=== PATIENT | male | born 1945 | race Hispanic/Latino ===

== ENCOUNTER 2021-03-06 04:39 | Inpatient (IN) | payer MEDICARE, OTHER ==
[~2021-03-06] VITALS: Ht 177.8 cm; Wt 111.6 kg
[~2021-03-06 04:39] MED LIST: CARAFATE1 GM PO; CENTRUM TABLET1 EACH PO; CILOSTAZOL50 M1; CIPRO500 MG PO; CLARITIN10 MG PO; DIGOXIN125 MCG PO; FEROSUL325 MG PO; FLAGYL500 MG PO; GLIMEPIRIDE1 MG PO; GLYBURIDE5 MG PO; HUMALOG100 UNITS/; HUMALOG100 UNITS/ SC; IRON325 M1 PO; LASIX40 MG PO; LOMOTIL TABLET1 EACH PO; LUPRON INJ; ONGLYZA5 MG PO; PANTOPRAZOLE SO40 MG PO; RANITIDINE HCL300 MG PO; REGLAN10 MG PO; SEPTRA DS TABL1 EACH PO; TAMSULOSIN HCL0.4 MG PO; TRIAMTERENE-HC1 EAC2 PO; WARFARIN SODIUM2 MG PO; WARFARIN SODIUM4 MG PO; Z NOVOLIN N SC; Z.0.ALLOPURINOL300 M PO; Z.0.CITRACAL + D C1 PO; Z.0.DIGOXIN125 MCG PO; Z.0.FLOMAX0.4 MG PO; Z.0.GLUCOPHAGE850 MG; Z.0.GLYBURIDE5 MG PO; Z.0.HYDROCHLOROTHIA2 PO; Z.0.LEVOTHYROXINE50 PO; Z.0.METOPROLOL SUCC5 PO; Z.0.ONGLYZA5 MG PO; Z.0.VASOTEC20 MG PO; Z.0.WARFARIN SODIUM4 PO
[2021-03-06 05:45] LABS: BASOPHILS # (AUTO) 0.1 (0.0-0.1); BASOPHILS % 0.5 % (0.0-1.0); EOSINOPHILS % 0.1 % (0.0-6.0); HEMATOCRIT 39.8 % (38.2-49.6); HEMOGLOBIN 12.6 g/dL (14.0-18.0); LYMPHOCYTES # (AUTO) 1.9 (1.0-3.2); MEAN CORPUSCULAR HEMOGLOBIN 28.4 pg (28-32); MEAN CORPUSCULAR HGB CONC 31.7 g/dL (31-35); MEAN CORPUSCULAR VOLUME 89.8 fL (81-99); MONOCYTES # (AUTO) 0.8 (0.2-0.8); MONOCYTES % 7.7 % (4.4-11.3); NEUTROPHILS # (AUTO) 7.2 (2.1-6.9); NEUTROPHILS % 72.1 % (38.7-80.0); PLATELET COUNT 117 x10e3/uL (140-360); RED BLOOD COUNT 4.43 x10e6/uL (4.3-5.7); RED CELL DISTRIBUTION WIDTH 15.5 % (11.7-14.4)
[2021-03-06] MEDS ORDERED: ACETAMINOPHEN 325 MG TAB PO ONE ×2 (05:45→11:45)
[2021-03-06 05:50] LABS: INR 1.05; PROTHROMBIN TIME 13.9 seconds (11.9-14.5)
[2021-03-06 05:51] LABS: CLARITY,URINE CLOUDY (CLEAR); COLOR,URINE BROWN (YELLOW); KETONES,URINE 1+ (NEGATIVE); LEUKOCYTE ESTERASE ,URINE LARGE (NEGATIVE); NITRITE,URINE POSITIVE (NEGATIVE); PROTEIN,URINE DIPSTICK >=300 (NEGATIVE)
[2021-03-06 05:51] LABS: PARTIAL THROMBOPLASTIN TIME 42.5 seconds (23.8-35.5)
[2021-03-06 05:55] LABS: ANION GAP 18.9 mmol/L (8-16); CALCIUM 8.8 mg/dL (8.4-10.2); CREATININE, SERUM 1.7 mg/dL (0.72-1.25); POTASSIUM 3.9 mmol/L (3.5-5.1)
[2021-03-06 06:01] LABS: RBC,URINE >50 /HPF (0-5)
[2021-03-06 06:02] LABS: BACTERIA,URINE MODERATE /HPF; EPITHELIAL CELLS,URINE FEW /LPF
[2021-03-06] MEDS: MEROPENEM 1 GM in SODIUM CHLORIDE 0.9% 100 ML IV SCH ×2 (06:30→17:44)
[2021-03-06] MEDS ORDERED: CASIRIVIMAB/IMDEVIMAB 10 ML in SODIUM CHLORIDE 0.9% 100 ML IV ONE (06:45)
[2021-03-06] MEDS ORDERED: SODIUM CHLORIDE 0.9% 1000ML 1,000 ML IV ONE (07:00)
[2021-03-06] MEDS ORDERED: DEXTROSE 50% SYRINGE 50 ML IV PRN ×2 (07:00→08:45)
[2021-03-06] MEDS: INSULIN LISPRO 100 UNIT/1 ML 3ML VIAL SQ SCH ×5 (07:30→20:55)
[2021-03-06] MEDS: OMEPRAZOLE 20 MG CAP PO SCH (10:46)
[2021-03-06] MEDS: ZINC SULFATE 50 MG CAP PO SCH (10:46)
[2021-03-06] MEDS: METOPROLOL SUCCINATE 50 MG TAB XL PO SCH (10:46)
[2021-03-06] MEDS: ALLOPURINOL 300 MG TAB PO SCH (10:46)
[2021-03-06] MEDS: LEVOTHYROXINE SODIUM 50 MCG TAB PO SCH (10:46)
[2021-03-06] MEDS: ASCORBIC ACID 500 MG TAB PO SCH ×2 (10:46→16:55)
[2021-03-06] MEDS: DIGOXIN 0.125 MG TAB PO SCH (10:46)
[2021-03-06] MEDS: DEXAMETHASONE SOD PHOS INJ 4 MG/ML SDV IV SCH (10:46)
[2021-03-06] MEDS ORDERED: IBUPROFEN 600 MG TAB PO STA (11:31)
[2021-03-06 12:10] VITALS: BP 169/94
[2021-03-06 12:36] VITALS: BP 169/94
[2021-03-06] MEDS ORDERED: NIFEDIPINE 10 MG CAP PO ONE (13:30)
[2021-03-06] MEDS ORDERED: NIFEDIPINE CR 30 MG TAB PO ONE (13:45)
[2021-03-06 16:22] VITALS: BP 130/51
[2021-03-06] MEDS: TAMSULOSIN HCL 0.4 MG CAP PO SCH (16:55)
[2021-03-06 20:36] VITALS: BP 126/53
[2021-03-06 20:50] VITALS: BP 126/53
[2021-03-07] VITALS (9 sets, daily range): BP systolic 107–144; BP diastolic 57–68
[2021-03-07 05:02] LABS: BASOPHILS % 0.1 % (0.0-1.0); HEMATOCRIT 35.3 % (38.2-49.6); HEMOGLOBIN 11.4 g/dL (14.0-18.0); LYMPHOCYTES # (AUTO) 1.2 (1.0-3.2); LYMPHOCYTES % 6.9 % (18.0-39.1); MEAN CORPUSCULAR HEMOGLOBIN 28.4 pg (28-32); MEAN CORPUSCULAR HGB CONC 32.3 g/dL (31-35); MONOCYTES # (AUTO) 0.5 (0.2-0.8); MONOCYTES % 2.9 % (4.4-11.3); NEUTROPHILS % 89.1 % (38.7-80.0); PLATELET COUNT 85 x10e3/uL (140-360); RED BLOOD COUNT 4.01 x10e6/uL (4.3-5.7); RED CELL DISTRIBUTION WIDTH 15.3 % (11.7-14.4)
[2021-03-07 05:35] LABS: ALBUMIN 2.8 g/dL (3.5-5.0); ALBUMIN/GLOBULIN RATIO 0.9 (0.8-2.0); ANION GAP 14.7 mmol/L (8-16); CALCIUM 8.5 mg/dL (8.4-10.2); CREATININE, SERUM 1.54 mg/dL (0.72-1.25); POTASSIUM 3.7 mmol/L (3.5-5.1)
[2021-03-07] MEDS ORDERED: SODIUM CHLORIDE 0.9% 250ML 250 ML ONE (05:48)
[2021-03-07] MEDS: MEROPENEM 1 GM in SODIUM CHLORIDE 0.9% 100 ML IV SCH ×2 (05:52→17:12)
[2021-03-07] MEDS: LEVOTHYROXINE SODIUM 50 MCG TAB PO SCH (05:52)
[2021-03-07] MEDS: DIGOXIN 0.125 MG TAB PO SCH (08:30)
[2021-03-07] MEDS: OMEPRAZOLE 20 MG CAP PO SCH (08:30)
[2021-03-07] MEDS: DEXAMETHASONE SOD PHOS INJ 4 MG/ML SDV IV SCH (08:30)
[2021-03-07] MEDS: ALLOPURINOL 300 MG TAB PO SCH (08:31)
[2021-03-07] MEDS: ZINC SULFATE 50 MG CAP PO SCH (08:31)
[2021-03-07] MEDS: ASCORBIC ACID 500 MG TAB PO SCH ×2 (08:31→17:12)
[2021-03-07] MEDS: CHOLECALCIFEROL 1,000 UNIT TAB PO SCH (08:31)
[2021-03-07] MEDS: NIFEDIPINE CR 30 MG TAB PO SCH (08:31)
[2021-03-07] MEDS ORDERED: NIFEDIPINE 10 MG CAP PO SCH (09:00)
[2021-03-07] MEDS ORDERED: HYDRALAZINE HCL 20 MG/ML VIAL IV PRN (09:00)
[2021-03-07] MEDS: INSULIN LISPRO 100 UNIT/1 ML 3ML VIAL SQ SCH ×4 (09:32→21:05)
[2021-03-07] MEDS: HYDRALAZINE HCL 25 MG TAB PO SCH ×3 (09:39→22:10)
[2021-03-07] MEDS: TAMSULOSIN HCL 0.4 MG CAP PO SCH (17:12)
[2021-03-07] MEDS: METOPROLOL SUCCINATE 50 MG TAB XL PO SCH (21:05)
[2021-03-08] VITALS (7 sets, daily range): BP systolic 118–173; BP diastolic 61–72
[2021-03-08 05:03] LABS: BASOPHILS % 0.2 % (0.0-1.0); HEMATOCRIT 32.2 % (38.2-49.6); HEMOGLOBIN 10.2 g/dL (14.0-18.0); LYMPHOCYTES % 10.7 % (18.0-39.1); MEAN CORPUSCULAR HEMOGLOBIN 28.2 pg (28-32); MEAN CORPUSCULAR HGB CONC 31.7 g/dL (31-35); MONOCYTES # (AUTO) 0.6 (0.2-0.8); MONOCYTES % 5.8 % (4.4-11.3); NEUTROPHILS # (AUTO) 7.9 (2.1-6.9); NEUTROPHILS % 82.3 % (38.7-80.0); PLATELET COUNT 87 x10e3/uL (140-360); RED BLOOD COUNT 3.62 x10e6/uL (4.3-5.7)
[2021-03-08 05:27] LABS: ANION GAP 13.9 mmol/L (8-16); CALCIUM 8.2 mg/dL (8.4-10.2); CREATININE, SERUM 1.35 mg/dL (0.72-1.25); POTASSIUM 3.9 mmol/L (3.5-5.1)
[2021-03-08] MEDS: HYDRALAZINE HCL 25 MG TAB PO SCH ×3 (06:04→21:34)
[2021-03-08] MEDS: LEVOTHYROXINE SODIUM 50 MCG TAB PO SCH (06:30)
[2021-03-08] MEDS: MEROPENEM 1 GM in SODIUM CHLORIDE 0.9% 100 ML IV SCH ×2 (06:30→17:44)
[2021-03-08] MEDS: OMEPRAZOLE 20 MG CAP PO SCH (08:50)
[2021-03-08] MEDS: ASCORBIC ACID 500 MG TAB PO SCH ×2 (08:51→17:05)
[2021-03-08] MEDS: ZINC SULFATE 50 MG CAP PO SCH (08:51)
[2021-03-08] MEDS: ALLOPURINOL 300 MG TAB PO SCH (08:51)
[2021-03-08] MEDS: DIGOXIN 0.125 MG TAB PO SCH (09:04)
[2021-03-08] MEDS: NIFEDIPINE CR 30 MG TAB PO SCH (09:05)
[2021-03-08] MEDS: CHOLECALCIFEROL 1,000 UNIT TAB PO SCH (09:05)
[2021-03-08] MEDS: INSULIN LISPRO 100 UNIT/1 ML 3ML VIAL SQ SCH ×4 (09:29→21:33)
[2021-03-08] MEDS: TAMSULOSIN HCL 0.4 MG CAP PO SCH (17:05)
[2021-03-08] MEDS: METOPROLOL SUCCINATE 50 MG TAB XL PO SCH (21:33)
[2021-03-08] MEDS ORDERED: ACETAMINOPHEN 325 MG TAB PO PRN (23:45)
[2021-03-08] MEDS: HYDROCODONE/APAP 7.5MG-325MG 1 EA TAB PO PRN (23:48)
[2021-03-09] VITALS: BP 133/74
[2021-03-09 04:00] VITALS: BP 126/63
[2021-03-09] MEDS: LEVOTHYROXINE SODIUM 50 MCG TAB PO SCH (06:01)
[2021-03-09] MEDS: MEROPENEM 1 GM in SODIUM CHLORIDE 0.9% 100 ML IV SCH ×2 (06:01→18:16)
[2021-03-09] MEDS: HYDRALAZINE HCL 25 MG TAB PO SCH ×3 (06:05→21:08)
[2021-03-09 07:12] VITALS: BP 126/63
[2021-03-09] MEDS: OMEPRAZOLE 20 MG CAP PO SCH (08:22)
[2021-03-09] MEDS: DIGOXIN 0.125 MG TAB PO SCH (08:22)
[2021-03-09] MEDS: NIFEDIPINE CR 30 MG TAB PO SCH (08:22)
[2021-03-09] MEDS: ZINC SULFATE 50 MG CAP PO SCH (08:23)
[2021-03-09] MEDS: ALLOPURINOL 300 MG TAB PO SCH (08:23)
[2021-03-09] MEDS: CHOLECALCIFEROL 1,000 UNIT TAB PO SCH (08:23)
[2021-03-09] MEDS: ASCORBIC ACID 500 MG TAB PO SCH ×2 (08:23→17:20)
[2021-03-09] MEDS: INSULIN LISPRO 100 UNIT/1 ML 3ML VIAL SQ SCH ×4 (09:22→21:06)
[2021-03-09 09:33] VITALS: BP 158/55
[2021-03-09] MEDS: TAMSULOSIN HCL 0.4 MG CAP PO SCH (17:20)
[2021-03-09 20:00] VITALS: BP 145/60
[2021-03-09 21:00] VITALS: BP 145/60
[2021-03-09] MEDS: METOPROLOL SUCCINATE 50 MG TAB XL PO SCH (21:07)
[2021-03-10] VITALS (8 sets, daily range): BP systolic 125–140; BP diastolic 53–74
[2021-03-10] MEDS: HYDRALAZINE HCL 25 MG TAB PO SCH ×3 (05:58→21:24)
[2021-03-10] MEDS: MEROPENEM 1 GM in SODIUM CHLORIDE 0.9% 100 ML IV SCH ×2 (05:58→17:23)
[2021-03-10] MEDS: LEVOTHYROXINE SODIUM 50 MCG TAB PO SCH (05:58)
[2021-03-10 06:09] LABS: BASOPHILS % 0.3 % (0.0-1.0); EOSINOPHILS # (AUTO) 0.1 (0.0-0.4); EOSINOPHILS % 1.3 % (0.0-6.0); HEMATOCRIT 30.8 % (38.2-49.6); HEMOGLOBIN 9.8 g/dL (14.0-18.0); LYMPHOCYTES % 17.6 % (18.0-39.1); MEAN CORPUSCULAR HEMOGLOBIN 28.2 pg (28-32); MEAN CORPUSCULAR HGB CONC 31.8 g/dL (31-35); MEAN CORPUSCULAR VOLUME 88.5 fL (81-99); MONOCYTES # (AUTO) 0.6 (0.2-0.8); MONOCYTES % 5.4 % (4.4-11.3); NEUTROPHILS # (AUTO) 8.1 (2.1-6.9); NEUTROPHILS % 73.1 % (38.7-80.0); PLATELET COUNT 115 x10e3/uL (140-360); RED BLOOD COUNT 3.48 x10e6/uL (4.3-5.7); RED CELL DISTRIBUTION WIDTH 14.7 % (11.7-14.4)
[2021-03-10 06:35] LABS: ANION GAP 12.8 mmol/L (8-16); CREATININE, SERUM 0.91 mg/dL (0.72-1.25); POTASSIUM 3.8 mmol/L (3.5-5.1)
[2021-03-10] MEDS: NIFEDIPINE CR 30 MG TAB PO SCH (08:14)
[2021-03-10] MEDS: CHOLECALCIFEROL 1,000 UNIT TAB PO SCH (08:14)
[2021-03-10] MEDS: DIGOXIN 0.125 MG TAB PO SCH (08:14)
[2021-03-10] MEDS: OMEPRAZOLE 20 MG CAP PO SCH (08:14)
[2021-03-10] MEDS: ASCORBIC ACID 500 MG TAB PO SCH ×2 (08:14→17:23)
[2021-03-10] MEDS: ZINC SULFATE 50 MG CAP PO SCH (08:15)
[2021-03-10] MEDS: ALLOPURINOL 300 MG TAB PO SCH (08:15)
[2021-03-10] MEDS: INSULIN LISPRO 100 UNIT/1 ML 3ML VIAL SQ SCH ×4 (08:16→20:34)
[2021-03-10] MEDS: TAMSULOSIN HCL 0.4 MG CAP PO SCH (17:23)
[2021-03-10] MEDS: METOPROLOL SUCCINATE 50 MG TAB XL PO SCH (21:24)
[2021-03-11] VITALS (8 sets, daily range): BP systolic 113–165; BP diastolic 55–95
[2021-03-11] MEDS: MEROPENEM 1 GM in SODIUM CHLORIDE 0.9% 100 ML IV SCH ×2 (06:01→17:05)
[2021-03-11] MEDS: LEVOTHYROXINE SODIUM 50 MCG TAB PO SCH (06:01)
[2021-03-11] MEDS: HYDRALAZINE HCL 25 MG TAB PO SCH ×3 (06:01→21:27)
[2021-03-11] MEDS: CHOLECALCIFEROL 1,000 UNIT TAB PO SCH (08:22)
[2021-03-11] MEDS: OMEPRAZOLE 20 MG CAP PO SCH (08:22)
[2021-03-11] MEDS: ASCORBIC ACID 500 MG TAB PO SCH ×2 (08:22→17:05)
[2021-03-11] MEDS: DIGOXIN 0.125 MG TAB PO SCH (08:22)
[2021-03-11] MEDS: ZINC SULFATE 50 MG CAP PO SCH (08:22)
[2021-03-11] MEDS: ALLOPURINOL 300 MG TAB PO SCH (08:22)
[2021-03-11] MEDS: NIFEDIPINE CR 30 MG TAB PO SCH (08:23)
[2021-03-11] MEDS ORDERED: BENZONATATE 100 MG CAP PO PRN (08:30)
[2021-03-11] MEDS: INSULIN LISPRO 100 UNIT/1 ML 3ML VIAL SQ SCH ×4 (08:39→21:16)
[2021-03-11] MEDS: GUAIFENESIN 200 MG/10 ML UDC PO SCH ×3 (09:27→21:27)
[2021-03-11] MEDS: BENZONATATE 100 MG CAP PO SCH ×3 (09:29→21:11)
[2021-03-11] MEDS: TAMSULOSIN HCL 0.4 MG CAP PO SCH (17:05)
[2021-03-11] MEDS: METOPROLOL SUCCINATE 50 MG TAB XL PO SCH (21:11)
[2021-03-11] MEDS: HYDROCODONE/APAP 7.5MG-325MG 1 EA TAB PO PRN (23:12)
[2021-03-12] VITALS (8 sets, daily range): BP systolic 133–160; BP diastolic 53–65
[2021-03-12 05:08] LABS: BASOPHILS % 0.2 % (0.0-1.0); EOSINOPHILS # (AUTO) 0.3 (0.0-0.4); EOSINOPHILS % 1.6 % (0.0-6.0); HEMATOCRIT 28.8 % (38.2-49.6); HEMOGLOBIN 9.1 g/dL (14.0-18.0); LYMPHOCYTES # (AUTO) 2.9 (1.0-3.2); LYMPHOCYTES % 14.9 % (18.0-39.1); MEAN CORPUSCULAR HEMOGLOBIN 28.6 pg (28-32); MEAN CORPUSCULAR HGB CONC 31.6 g/dL (31-35); MEAN CORPUSCULAR VOLUME 90.6 fL (81-99); MONOCYTES % 5.1 % (4.4-11.3); NEUTROPHILS # (AUTO) 14.5 (2.1-6.9); NEUTROPHILS % 75.2 % (38.7-80.0); PLATELET COUNT 155 x10e3/uL (140-360); RED BLOOD COUNT 3.18 x10e6/uL (4.3-5.7); RED CELL DISTRIBUTION WIDTH 14.9 % (11.7-14.4)
[2021-03-12] MEDS: MEROPENEM 1 GM in SODIUM CHLORIDE 0.9% 100 ML IV SCH (06:19)
[2021-03-12] MEDS: LEVOTHYROXINE SODIUM 50 MCG TAB PO SCH (06:19)
[2021-03-12] MEDS: GUAIFENESIN 200 MG/10 ML UDC PO SCH ×3 (06:19→21:41)
[2021-03-12] MEDS: HYDRALAZINE HCL 25 MG TAB PO SCH ×3 (06:19→21:41)
[2021-03-12] MEDS: DIGOXIN 0.125 MG TAB PO SCH (07:59)
[2021-03-12] MEDS: OMEPRAZOLE 20 MG CAP PO SCH (08:30)
[2021-03-12] MEDS: BENZONATATE 100 MG CAP PO SCH ×3 (08:31→21:39)
[2021-03-12] MEDS: ALLOPURINOL 300 MG TAB PO SCH (08:31)
[2021-03-12] MEDS: ZINC SULFATE 50 MG CAP PO SCH (08:31)
[2021-03-12] MEDS: CHOLECALCIFEROL 1,000 UNIT TAB PO SCH (08:31)
[2021-03-12] MEDS: ASCORBIC ACID 500 MG TAB PO SCH ×2 (08:31→16:32)
[2021-03-12] MEDS: NIFEDIPINE CR 30 MG TAB PO SCH (08:31)
[2021-03-12] MEDS: INSULIN LISPRO 100 UNIT/1 ML 3ML VIAL SQ SCH ×4 (08:32→21:40)
[2021-03-12] MEDS ORDERED: SODIUM CHLORIDE 0.9% 250ML 250 ML ONE (14:25)
[2021-03-12] MEDS ORDERED: IOPAMIDOL 370 MG/ML 200 ML INFUS..BTL INJ ONE (14:25)
[2021-03-12] MEDS: TAMSULOSIN HCL 0.4 MG CAP PO SCH (16:32)
[2021-03-12] MEDS: METOPROLOL SUCCINATE 50 MG TAB XL PO SCH (21:39)
[2021-03-13] VITALS (9 sets, daily range): BP systolic 131–165; BP diastolic 49–70
[2021-03-13 04:58] LABS: BASOPHILS % 0.2 % (0.0-1.0); EOSINOPHILS # (AUTO) 0.3 (0.0-0.4); EOSINOPHILS % 1.7 % (0.0-6.0); HEMATOCRIT 24.8 % (38.2-49.6); HEMOGLOBIN 8.1 g/dL (14.0-18.0); LYMPHOCYTES % 10.8 % (18.0-39.1); MEAN CORPUSCULAR HEMOGLOBIN 28.1 pg (28-32); MEAN CORPUSCULAR HGB CONC 32.7 g/dL (31-35); MEAN CORPUSCULAR VOLUME 86.1 fL (81-99); MONOCYTES # (AUTO) 1.1 (0.2-0.8); MONOCYTES % 6.1 % (4.4-11.3); NEUTROPHILS # (AUTO) 14.2 (2.1-6.9); NEUTROPHILS % 77.2 % (38.7-80.0); PLATELET COUNT 176 x10e3/uL (140-360); RED BLOOD COUNT 2.88 x10e6/uL (4.3-5.7)
[2021-03-13] MEDS: GUAIFENESIN 200 MG/10 ML UDC PO SCH ×3 (05:21→22:22)
[2021-03-13] MEDS: LEVOTHYROXINE SODIUM 50 MCG TAB PO SCH (05:21)
[2021-03-13] MEDS: HYDRALAZINE HCL 25 MG TAB PO SCH ×3 (05:21→22:21)
[2021-03-13 05:31] LABS: ANION GAP 9.7 mmol/L (8-16); CALCIUM 8.1 mg/dL (8.4-10.2); CREATININE, SERUM 0.84 mg/dL (0.72-1.25); POTASSIUM 3.7 mmol/L (3.5-5.1)
[2021-03-13] MEDS: INSULIN LISPRO 100 UNIT/1 ML 3ML VIAL SQ SCH ×4 (07:30→20:08)
[2021-03-13] MEDS: BENZONATATE 100 MG CAP PO SCH ×3 (08:51→20:06)
[2021-03-13] MEDS: NIFEDIPINE CR 30 MG TAB PO SCH (08:51)
[2021-03-13] MEDS: ASCORBIC ACID 500 MG TAB PO SCH ×2 (08:51→17:10)
[2021-03-13] MEDS: DIGOXIN 0.125 MG TAB PO SCH (08:51)
[2021-03-13] MEDS: OMEPRAZOLE 20 MG CAP PO SCH (08:51)
[2021-03-13] MEDS: ALLOPURINOL 300 MG TAB PO SCH (08:51)
[2021-03-13] MEDS: CHOLECALCIFEROL 1,000 UNIT TAB PO SCH (08:51)
[2021-03-13] MEDS: ZINC SULFATE 50 MG CAP PO SCH (08:51)
[2021-03-13] MEDS: CEFUROXIME AXETIL 250 MG TAB PO SCH ×2 (13:53→20:06)
[2021-03-13] MEDS ORDERED: CIPROFLOXACIN 500 MG TAB PO SCH (17:00)
[2021-03-13] MEDS: TAMSULOSIN HCL 0.4 MG CAP PO SCH (17:10)
[2021-03-13] MEDS: HYDROCODONE/APAP 7.5MG-325MG 1 EA TAB PO PRN (19:58)
[2021-03-13] MEDS: METOPROLOL SUCCINATE 50 MG TAB XL PO SCH (20:07)
[2021-03-14] VITALS (8 sets, daily range): BP systolic 114–137; BP diastolic 49–82
[2021-03-14 05:01] LABS: BASOPHILS % 0.2 % (0.0-1.0); EOSINOPHILS # (AUTO) 0.3 (0.0-0.4); EOSINOPHILS % 1.5 % (0.0-6.0); HEMATOCRIT 24.6 % (38.2-49.6); LYMPHOCYTES # (AUTO) 2.4 (1.0-3.2); LYMPHOCYTES % 13.2 % (18.0-39.1); MEAN CORPUSCULAR HGB CONC 32.5 g/dL (31-35); MONOCYTES # (AUTO) 1.5 (0.2-0.8); NEUTROPHILS # (AUTO) 13.4 (2.1-6.9); NEUTROPHILS % 73.1 % (38.7-80.0); PLATELET COUNT 220 x10e3/uL (140-360); RED BLOOD COUNT 2.86 x10e6/uL (4.3-5.7)
[2021-03-14 05:26] LABS: ANION GAP 13.1 mmol/L (8-16); CALCIUM 8.1 mg/dL (8.4-10.2); CREATININE, SERUM 0.84 mg/dL (0.72-1.25); POTASSIUM 4.1 mmol/L (3.5-5.1)
[2021-03-14] MEDS: HYDRALAZINE HCL 25 MG TAB PO SCH ×3 (05:50→21:31)
[2021-03-14] MEDS: LEVOTHYROXINE SODIUM 50 MCG TAB PO SCH (05:50)
[2021-03-14] MEDS: GUAIFENESIN 200 MG/10 ML UDC PO SCH ×3 (05:50→21:31)
[2021-03-14] MEDS: BENZONATATE 100 MG CAP PO SCH ×3 (08:21→20:39)
[2021-03-14] MEDS: OMEPRAZOLE 20 MG CAP PO SCH (08:21)
[2021-03-14] MEDS: CEFUROXIME AXETIL 250 MG TAB PO SCH ×2 (08:21→20:39)
[2021-03-14] MEDS: CHOLECALCIFEROL 1,000 UNIT TAB PO SCH (08:22)
[2021-03-14] MEDS: ZINC SULFATE 50 MG CAP PO SCH (08:22)
[2021-03-14] MEDS: ALLOPURINOL 300 MG TAB PO SCH (08:22)
[2021-03-14] MEDS: ASCORBIC ACID 500 MG TAB PO SCH ×2 (08:22→16:25)
[2021-03-14] MEDS: INSULIN LISPRO 100 UNIT/1 ML 3ML VIAL SQ SCH ×4 (08:45→20:40)
[2021-03-14] MEDS: DIGOXIN 0.125 MG TAB PO SCH (08:46)
[2021-03-14] MEDS: NIFEDIPINE CR 30 MG TAB PO SCH (08:46)
[2021-03-14] MEDS: TAMSULOSIN HCL 0.4 MG CAP PO SCH (16:25)
[2021-03-14] MEDS: METOPROLOL SUCCINATE 50 MG TAB XL PO SCH (20:39)
[2021-03-15] VITALS (8 sets, daily range): BP systolic 128–147; BP diastolic 47–56
[2021-03-15 05:07] LABS: BASOPHILS % 0.2 % (0.0-1.0); EOSINOPHILS # (AUTO) 0.2 (0.0-0.4); HEMATOCRIT 23.3 % (38.2-49.6); HEMOGLOBIN 7.4 g/dL (14.0-18.0); LYMPHOCYTES # (AUTO) 1.8 (1.0-3.2); LYMPHOCYTES % 9.6 % (18.0-39.1); MEAN CORPUSCULAR HEMOGLOBIN 27.9 pg (28-32); MEAN CORPUSCULAR HGB CONC 31.8 g/dL (31-35); MEAN CORPUSCULAR VOLUME 87.9 fL (81-99); MONOCYTES # (AUTO) 1.3 (0.2-0.8); MONOCYTES % 6.8 % (4.4-11.3); NEUTROPHILS # (AUTO) 14.6 (2.1-6.9); NEUTROPHILS % 79.5 % (38.7-80.0); PLATELET COUNT 230 x10e3/uL (140-360); RED BLOOD COUNT 2.65 x10e6/uL (4.3-5.7); RED CELL DISTRIBUTION WIDTH 15.4 % (11.7-14.4)
[2021-03-15 05:57] LABS: ANION GAP 9.9 mmol/L (8-16); CALCIUM 7.9 mg/dL (8.4-10.2); CREATININE, SERUM 0.97 mg/dL (0.72-1.25); POTASSIUM 3.9 mmol/L (3.5-5.1)
[2021-03-15] MEDS: GUAIFENESIN 200 MG/10 ML UDC PO SCH ×3 (06:03→22:35)
[2021-03-15] MEDS: HYDRALAZINE HCL 25 MG TAB PO SCH ×3 (06:03→22:35)
[2021-03-15] MEDS: LEVOTHYROXINE SODIUM 50 MCG TAB PO SCH (06:03)
[2021-03-15] MEDS: CEFUROXIME AXETIL 250 MG TAB PO SCH ×2 (08:29→20:25)
[2021-03-15] MEDS: NIFEDIPINE CR 30 MG TAB PO SCH (08:31)
[2021-03-15] MEDS: ZINC SULFATE 50 MG CAP PO SCH (08:31)
[2021-03-15] MEDS: ALLOPURINOL 300 MG TAB PO SCH (08:31)
[2021-03-15] MEDS: CHOLECALCIFEROL 1,000 UNIT TAB PO SCH (08:31)
[2021-03-15] MEDS: BENZONATATE 100 MG CAP PO SCH ×3 (08:31→20:25)
[2021-03-15] MEDS: DIGOXIN 0.125 MG TAB PO SCH (08:31)
[2021-03-15] MEDS: OMEPRAZOLE 20 MG CAP PO SCH (08:31)
[2021-03-15] MEDS: ASCORBIC ACID 500 MG TAB PO SCH ×2 (08:31→17:09)
[2021-03-15] MEDS: INSULIN LISPRO 100 UNIT/1 ML 3ML VIAL SQ SCH ×4 (08:57→20:25)
[2021-03-15] MEDS: TAMSULOSIN HCL 0.4 MG CAP PO SCH (17:09)
[2021-03-15] MEDS: METOPROLOL SUCCINATE 50 MG TAB XL PO SCH (20:25)
[2021-03-16] VITALS (8 sets, daily range): BP systolic 115–150; BP diastolic 48–61
[2021-03-16] MEDS: GUAIFENESIN 200 MG/10 ML UDC PO SCH ×3 (06:24→22:40)
[2021-03-16] MEDS: HYDRALAZINE HCL 25 MG TAB PO SCH ×3 (06:24→22:00)
[2021-03-16] MEDS: LEVOTHYROXINE SODIUM 50 MCG TAB PO SCH (06:25)
[2021-03-16] MEDS: CEFUROXIME AXETIL 250 MG TAB PO SCH ×2 (08:25→20:43)
[2021-03-16] MEDS: DIGOXIN 0.125 MG TAB PO SCH (08:25)
[2021-03-16] MEDS: OMEPRAZOLE 20 MG CAP PO SCH (08:25)
[2021-03-16] MEDS: NIFEDIPINE CR 30 MG TAB PO SCH (08:25)
[2021-03-16] MEDS: BENZONATATE 100 MG CAP PO SCH ×3 (08:26→20:43)
[2021-03-16] MEDS: ZINC SULFATE 50 MG CAP PO SCH (08:26)
[2021-03-16] MEDS: ASCORBIC ACID 500 MG TAB PO SCH ×2 (08:26→16:42)
[2021-03-16] MEDS: CHOLECALCIFEROL 1,000 UNIT TAB PO SCH (08:26)
[2021-03-16] MEDS: ALLOPURINOL 300 MG TAB PO SCH (08:26)
[2021-03-16] MEDS: INSULIN LISPRO 100 UNIT/1 ML 3ML VIAL SQ SCH ×4 (08:28→21:00)
[2021-03-16] MEDS: TAMSULOSIN HCL 0.4 MG CAP PO SCH (16:42)
[2021-03-16] MEDS: METOPROLOL SUCCINATE 50 MG TAB XL PO SCH (20:44)
[2021-03-17 05:54] VITALS: BP 138/62
[2021-03-17] MEDS: HYDRALAZINE HCL 25 MG TAB PO SCH ×2 (06:02→14:00)
[2021-03-17] MEDS: LEVOTHYROXINE SODIUM 50 MCG TAB PO SCH (06:02)
[2021-03-17] MEDS: GUAIFENESIN 200 MG/10 ML UDC PO SCH ×2 (06:02→15:39)
[2021-03-17] MEDS: INSULIN LISPRO 100 UNIT/1 ML 3ML VIAL SQ SCH ×3 (07:30→16:48)
[2021-03-17 08:16] VITALS: BP 133/54
[2021-03-17] MEDS: NIFEDIPINE CR 30 MG TAB PO SCH (09:00)
[2021-03-17] MEDS: CEFUROXIME AXETIL 250 MG TAB PO SCH (09:14)
[2021-03-17] MEDS: DIGOXIN 0.125 MG TAB PO SCH (09:15)
[2021-03-17] MEDS: OMEPRAZOLE 20 MG CAP PO SCH (09:15)
[2021-03-17] MEDS: ASCORBIC ACID 500 MG TAB PO SCH ×2 (09:16→16:29)
[2021-03-17] MEDS: ALLOPURINOL 300 MG TAB PO SCH (09:16)
[2021-03-17] MEDS: CHOLECALCIFEROL 1,000 UNIT TAB PO SCH (09:16)
[2021-03-17] MEDS: BENZONATATE 100 MG CAP PO SCH ×2 (09:16→15:39)
[2021-03-17] MEDS: ZINC SULFATE 50 MG CAP PO SCH (09:19)
[2021-03-17 11:11] VITALS: BP 133/54
[2021-03-17 11:54] VITALS: BP 132/54
[2021-03-17 15:56] VITALS: BP 134/61
[2021-03-17] MEDS: TAMSULOSIN HCL 0.4 MG CAP PO SCH (16:29)
[2021-03-17 20:00] VITALS: BP 153/51
== END 2021-03-17 20:15 | disposition home or self-care (01) | DRG 919 ==
LOC: ER 05:20 → ERHOLD 06:49 → IMCU 11:41
PROVIDERS: ADMIT Internal Medicine; ATTEND Internal Medicine
DX: N99.820 Postprocedural hemorrhage of a genitourinary system organ or structure following a genitourinary system procedure (principal); U07.1 COVID-19; N39.0 Urinary tract infection, site not specified; D62 Acute posthemorrhagic anemia; N17.9 Acute kidney failure, unspecified; N13.8 Other obstructive and reflux uropathy; N40.1 Benign prostatic hyperplasia with lower urinary tract symptoms; R33.8 Other retention of urine; N18.9 Chronic kidney disease, unspecified; E66.9 Obesity, unspecified; N32.89 Other specified disorders of bladder; R31.0 Gross hematuria; Z88.1 Allergy status to other antibiotic agents; Z88.0 Allergy status to penicillin; Z88.8 Allergy status to other drugs, medicaments and biological substances; Z68.35 Body mass index [BMI] 35.0-35.9, adult
CPT/HCPCS: 36415; 51700; 71045; 74178; 80048; 80053; 81001; 82948; 85025; 85610; 85730; 87040; 87086; 96361; 96372; 97139; 99285; J0360; J1100; J2185; J7050; Q9967; U0002

== ENCOUNTER → 2022-10-24 | Outpatient (CLI) | payer MEDICARE | LOC: US 07:32 | PROVIDERS: ATTEND Urology | DX: Z09 Encounter for follow-up examination after completed treatment for conditions other than malignant neoplasm (principal); N18.9 Chronic kidney disease, unspecified; N13.30 Unspecified hydronephrosis | CPT/HCPCS: 76770 ==